=== PATIENT | female | born 1945 | race Caucasian/White ===

== ENCOUNTER 2022-02-28 14:11 | Observation (INO) ==
[2022-02-28] MEDS ORDERED: IOPAMIDOL 100 ML BOTTLE IV ONE (14:12)
--- NOTE | 2022-02-28 15:41 | Emergency Department Note ---
HPI General Chief complaint: Abdominal Pain Stated complaint: Hiatal hernia Time Seen by Provider: 02/28/22 14:25 Source: patient Mode of arrival: ambulatory Limitations: no limitations History of Present Illness HPI Narrative: Narrative: Patient is a 76-year-old female with a complex medical history who presents to the emergency department due to abdominal pain. Patient states that she has a longtime diagnosis of hiatal hernia, and she is concerned that her symptoms are due to this. She states that for the last 5 days she has had constant epigastric abdominal pain. She states that it is difficult to describe, but that she may describe it as a sharp pain with radiation to the back. She denies palliative or provocative factors. She denies any further radiation of the pain. She does endorse absence of bowel movements for the last 2 days, and states that if she has had gas it has been very little. She has a history of tubal ligation, but does not have any other history of surgical procedures of th e abdomen. She denies any other concerns at this time. Related Data Home Medications Medication Instructions Recorded Confirmed multivitamin (Daily Multi-Vitamin 1 tab PO QAM 03/16/20 02/28/22 tablet) vitamin B complex (B 1 tab PO QDAY 03/16/20 02/28/22 Complex-Vitamin B12 tablet) calcium carbonate 600 mg-vitamin 1 tab PO QDAY 05/10/20 02/28/22 D3 20 mcg (800 unit) tablet aspirin 81 mg tablet,delayed 81 mg PO QDAY 10/17/20 03/01/22 release flaxseed oil 1,000 mg capsule 1,000 mg PO BID 10/17/20 02/28/22 albuterol sulfate 90 mcg/actuation 1 puff inhalation QAM 11/22/21 03/01/22 aerosol inhaler (Ventolin HFA) ascorbic acid (vitamin C) 1,000 mg 1,000 mg PO QDAY 11/22/21 12/11/21 tablet bupropion HCl 150 mg 24 hr tablet, 150 mg PO QDAY 11/22/21 02/28/22 extended release cholecalciferol (vitamin D3) 125 125 mcg PO QDAY 11/22/21 02/28/22 mcg (5,000 unit) tablet (Vitamin D3) coenzyme Q10 100 mg capsule 100 mg PO QDAY 11/22/21 02/28/22 (CoQ-10) fluticasone furoate 200 1 inh inhalation QDAY 11/22/21 02/28/22 mcg-vilanterol 25 mcg/dose inhalation powder (Breo Ellipta) ipratropium 20 mcg-albuterol 100 1 puff inhalation Q6H 11/22/21 02/28/22 mcg/actuation mist for inhalation (Combivent Respimat) magnesium 500 mg tablet 15 mg PO QDAY 11/22/21 02/28/22 metoprolol succinate 25 mg 12.5 mg PO QAM 11/22/21 03/01/22 tablet,extended release 24 hr vitamin E 268 mg (400 unit) capsule 400 unit PO QDAY 11/22/21 02/28/22 metoprolol succinate 25 mg 25 mg PO HS 03/01/22 03/01/22 tablet,extended release 24 hr Previous Rx's Medication Instructions Recorded nitroglycerin 0.4 mg sublingual 0.4 mg sublingual Q5M PRN Chest 07/13/19 tablet Pain #30 tabs Mastectomy bra #1 ea 04/12/21 Prosthetic breast pads bilaterally #1 ea 04/12/21 rosuvastatin 20 mg tablet See Rx Instructions .Route 11/13/21 .COMPLEX #90 tabs pantoprazole 40 mg tablet,delayed 40 mg PO QAM #90 tabs 11/20/21 release Allergies Allergy/AdvReac Type Severity Reaction Status Date / Time ascorbic acid Allergy Mild Rash Verified 03/01/22 05:38 oxybutynin Allergy Mild Rash Verified 01/09/22 11:27 Penicillins Allergy Mild Rash Verified 02/28/22 20:12 solifenacin [From Vesicare] Allergy Mild Rash Verified 02/28/22 20:12 apixaban [From Eliquis] AdvReac Mild painful Verified 02/28/22 20:12 bladder Sulfa (Sulfonamide AdvReac Mild bladder Verified 02/28/22 20:12 Antibiotics) pain Review of Systems ROS ROS Narrative: Narrative: Constitutional: Denies fever or weakness Eyes: Denies eye pain or vision change ENT ED: Denies throat pain, hearing loss or rhinorrhea Cardiovascular: Denies chest pain, dyspnea on exertion, orthopnea or edema Respiratory: Denies shortness of breath or cough Gastrointestinal: Reports abdominal pain and constipation; Denies nausea, vomiting, diarrhea, hematochezia or melena Musculoskeletal: Denies back pain or myalgia Integumentary: Denies rash or lesions Neurological: Denies headache, weakness, numbness, confusion, abnormal gait or dizziness Endocrine: Denies fatigue or polyuria PFS Narrative Patient History Narrative: Narrative: Medical/Surgical/Family History All Active Problems (Updated 03/01/22 @ 22:36 by Josef Ramsey MD) Ventral hernia (Acute) Incarcerated ventral hernia (Acute) Fracture of metatarsal of right foot, closed (Acute) Nondisplaced fracture of lateral malleolus of right fibula (Acute) Encounter for screening for malignant neoplasm of colon (Acute) Former cigarette smoker (Acute) Spinal stenosis, lumbar region with neurogenic claudication (Acute) Leg cramps (Acute) Renal failure (Acute) Radiculopathy, lumbosacral region (Acute) History of breast cancer (Chronic) Low back pain (Chronic) Lumbar radiculopathy (Chronic) Pacemaker (Chronic) Left leg pain (Chronic) Visual symptom interfering with vision (Chronic) CAD (coronary artery disease) (Chronic) History of esophagogastroduodenoscopy (EGD) (Chronic 05/22/17) Bronchitis (Chronic) History of surgery (Chronic 06/11/17) History of bladder cancer (Chronic ~01/2017) History of pacemaker (Chronic 01/07/17) History of coronary angiogram (Chronic 10/19/16) History of surgery (Chronic ~07/2014) History of lymph node excision (Chronic) Cardiomyopathy (Chronic) History of colonoscopy (Chronic 05/22/17) Neuropathy (Chronic) Edema (Chronic) Breast cancer (Chronic ~2014) Diabetes (Chronic) Arthritis (Chronic) Heart palpitations (Chronic) SOB (shortness of breath) (Chronic) Heartburn (Chronic) Allergies (Chronic) Emphysema lung (Chronic) Actinic keratosis (Chronic) Anxiety (Chronic) Lymphedema (Chronic) GERD (gastroesophageal reflux disease) (Chronic) Hyperlipidemia (Chronic) COPD (chronic obstructive pulmonary disease) (Chronic) Lumbar back pain (Chronic) Vitamin D deficiency (Chronic) Other hypertrophic cardiomyopathy (Chronic) Non-ST elevation (NSTEMI) myocardial infarction (Chronic) Foot pain (Chronic) Sinus bradycardia, chronic (Chronic) CVA (cerebral vascular accident) (Chronic) Hematuria, unspecified (Chronic) Encounter for long-term (current) use of medications (Chronic) Urinary frequency (Chronic) Chronic rhinitis (Chronic) Hoarseness (Chronic) Peripheral neuropathy (Chronic) Osteopenia (Chronic) Pulmonary nodule (Chronic) Trigger finger (Chronic) Upper respiratory infection (Chronic) Breast cancer, right (Chronic) Medical History Actinic keratosis Allergies Anxiety Arthritis Breast cancer, right Cardiomyopathy congestive systolic, diastolic heart failure Chronic rhinitis COPD (chronic obstructive pulmonary disease) CVA (cerebral vascular accident) Diabetes Edema Emphysema lung Encounter for long-term (current) use of medications Foot pain GERD (gastroesophageal reflux disease) Heart palpitations Heartburn Hematuria, unspecified History of breast cancer Hoarseness Hyperlipidemia Low back pain Lumbar back pain Lumbar radiculopathy Lymphedema Neuropathy Non-ST elevation (NSTEMI) myocardial infarction Osteopenia Other hypertrophic cardiomyopathy Pacemaker Peripheral neuropathy Pulmonary nodule Sinus bradycardia, chronic SOB (shortness of breath) Spinal stenosis, lumbar region with neurogenic claudication Trigger finger Urinary frequency Vitamin D deficiency Surgical History Breast cancer (~2014) 05/28/13 Right breast CA - Triple neg CA 01/2015 Double Mastectomy History of bladder cancer (~01/2017) Dr Worthy History of colonoscopy (05/22/17) 2012 [facility] 05/22/17 Dr Herndon 11/29/2021-Dr. House History of coronary angiogram (10/19/16) History of esophagogastroduodenoscopy (EGD) (05/22/17) History of lymph node excision lymph node removal 08/2014 History of pacemaker (01/07/17) [place] History of surgery (~07/2014) Implanted [place] History of surgery (06/11/17) TURBT Dr Worthy Family History Mother Stomach cancer Arthritis Father , age 92 Heart disease Stroke Arthritis Grandmother Diabetes mellitus maternal Grandfather Emphysema lung maternal Brother Accident COD Prostate cancer Arthritis Asthma Family/Other Accident child due to accident Social History Alcohol Intake Frequency: holiday/special occasion only Substance Use: does not use Exam Narrative Narrative: Narrative: General Limitations: no limitations General appearance: Present alert and in no apparent distress; Absent anxious or appears intoxicated Head Head: Present atraumatic and normocephalic Eye Eye: Present PERRL and EOMI; Absent scleral icterus ENT ENT: Present mucous membranes moist; Absent nasal congestion Neck Neck: Present full ROM; Absent tenderness Chest Chest: Present normal inspection and symmetric chest wall rise; Absent [place] Respiratory Respiratory: Present normal lung sounds bilaterally; Absent respiratory distress or accessory muscle use Cardiovascular Cardiovascular: Present regular rate, normal rhythm and normal heart sounds Adbominal Abdominal: Present soft, tenderness (Superior to umbilicus) and normal bowel sounds; Absent distention Extremities Extremities: Present normal inspection and full ROM Back Back: Present normal inspection and full ROM Neurological Neurological: Present alert and oriented X3 Psychiatric Psychiatric: Present normal affect and normal mood Skin Skin: Present warm (WNL), dry and normal color Course Vital Signs Vital signs: Vital Signs Temperature 97.7 F 02/28/22 14:26 Pulse Rate 82 02/28/22 14:26 Respiratory Rate 18 02/28/22 14:26 Blood Pressure 116/81 02/28/22 14:26 Pulse Oximetry (%) 95 02/28/22 14:26 Oxygen Delivery Method 02/28/22 14:26 Temperature 97.5 F 03/01/22 19:35 Pulse Rate 66 03/01/22 19:35 Respiratory Rate 18 03/01/22 19:35 Blood Pressure 109/66 03/01/22 19:35 Pulse Oximetry (%) 90 03/01/22 19:35 Oxygen Delivery Method 03/01/22 19:35 Oxygen Flow Rate (L/min) 0 03/01/22 13:15 [facility] Narrative Medical decision making narrative: Narrative: Patient is a 76-year-old female who presents due to concern for abdominal pain. Patient has a mass just superior to the umbilicus with pain concerning for hernia. CT scan was performed and does demonstrate hernia with mesenteric fat and surrounding edema. Reduction was attempted, but I was unable to reduce the hernia. Due to inability to reduce, mesenteric fat in the hernia sac with surrounding edema, and patient pain I spoke to Dr. Herndon who agreed to see and evaluate patient for admission. Lab Data Result diagrams: 02/28/22 16:07 Labs: Lab Results 02/28/22 02/28/22 02/28/22 Range/Units 16:05 16:06 16:06 WBC (4.5-11.0) K/mcL RBC (3.59-5.38) M/mcL Hgb (11.2-15.7) g/dL Hct (34.1-44.9) % POC Hct 41.0 (36-48) MCV (80.0-100.0) fL MCH (26.0-34.0) pg MCHC (31.0-36.0) g/dL RDW (11.5-14.5) % Plt Count (140-440) K/mcL MPV (7.4-10.4) fL Immature Gran % (Auto) (0.0-0.5) % Neut % (Auto) (38.0-78.0) % Lymph % (Auto) (15.5-49.0) % Roosevelt % (Auto) (1.0-12.0) % Eos % (Auto) (0.0-7.0) % Baso % (Auto) (0.0-2.0) % Lymph # (Auto) (1.50-4.80) K/mcL Roosevelt # (Auto) (0.10-0.90) K/mcL Eos # (Auto) (0.00-0.70) K/mcL Baso # (Auto) (0.00-0.30) K/mcL Immature Gran # (0.00-0.05) K/mcl Absolute Neutrophils (1.80-8.00) K/mcL VBG Lactic Acid 1.1 (0.5-2.0) mmol/L POC Sodium 140 (133-145) POC Potassium 5.2 H (3.3-5.1) POC Chloride 107 (96-108) POC Total CO2 29.0 (22-30) POC BUN 29 H (6-20) POC Creatinine 0.9 (0.6-1.2) POC Glucose 89 (70-105) POC WB Ioniz Calcium 1.11 L (1.16-1.32) Total Bilirubin 0.4 (0.1-1.0) mg/dL Direct Bilirubin < 0.2 (0-0.3) mg/dL AST 45 H (<32) U/L ALT 14 (<40) U/L Alkaline Phosphatase 55 (39-117) U/L Total Protein 7.2 (5.9-8.4) gm/dL Albumin 3.6 (3.2-5.2) gm/dL Globulin 3.6 (2.2-3.7) gm/dL Lipase 35 (7-60) U/L 02/28/22 Range/Units 16:07 WBC 8.7 (4.5-11.0) K/mcL RBC 4.47 (3.59-5.38) M/mcL Hgb 13.7 (11.2-15.7) g/dL Hct 42.1 (34.1-44.9) % POC Hct (36-48) MCV 94.2 (80.0-100.0) fL MCH 30.6 (26.0-34.0) pg MCHC 32.5 (31.0-36.0) g/dL RDW 12.8 (11.5-14.5) % Plt Count 191 (140-440) K/mcL MPV 11.6 H (7.4-10.4) fL Immature Gran % (Auto) 0.2 (0.0-0.5) % Neut % (Auto) 51.9 (38.0-78.0) % Lymph % (Auto) 34.4 (15.5-49.0) % Roosevelt % (Auto) 11.1 (1.0-12.0) % Eos % (Auto) 1.8 (0.0-7.0) % Baso % (Auto) 0.6 (0.0-2.0) % Lymph # (Auto) 2.98 (1.50-4.80) K/mcL Roosevelt # (Auto) 0.96 H (0.10-0.90) K/mcL Eos # (Auto) 0.16 (0.00-0.70) K/mcL Baso # (Auto) 0.05 (0.00-0.30) K/mcL Immature Gran # 0.02 (0.00-0.05) K/mcl Absolute Neutrophils 4.50 (1.80-8.00) K/mcL VBG Lactic Acid (0.5-2.0) mmol/L POC Sodium (133-145) POC Potassium (3.3-5.1) POC Chloride (96-108) POC Total CO2 (22-30) POC BUN (6-20) POC Creatinine (0.6-1.2) POC Glucose (70-105) POC WB Ioniz Calcium (1.16-1.32) Total Bilirubin (0.1-1.0) mg/dL Direct Bilirubin (0-0.3) mg/dL AST (<32) U/L ALT (<40) U/L Alkaline Phosphatase (39-117) U/L Total Protein (5.9-8.4) gm/dL Albumin (3.2-5.2) gm/dL Globulin (2.2-3.7) gm/dL Lipase (7-60) U/L Discharge Plan Patient/Caregiver Discharge Instructions Pt seen by [facility]/PA only: No Clinical Impression: Ventral hernia Patient Disposition: Xfer As Inpt ([facility]) Discharge Date/Time: 02/28/22 20:05
[2022-02-28 16:09] LABS: POC Calcium, Ionized 1.11 (1.16-1.32); POC Creatinine 0.9 (0.6-1.2); POC Potassium 5.2 (3.3-5.1)
[2022-02-28 16:46] LABS: Basophils # (Auto) 0.05 K/mcL (0.00-0.30); Basophils % (Auto) 0.6 % (0.0-2.0); Eosinophils # (Auto) 0.16 K/mcL (0.00-0.70); Eosinophils % (Auto) 1.8 % (0.0-7.0); Hematocrit 42.1 % (34.1-44.9); Hemoglobin 13.7 g/dL (11.2-15.7); Lymphocytes # (Auto) 2.98 K/mcL (1.50-4.80); Lymphocytes % (Auto) 34.4 % (15.5-49.0); Mean Cell Volume 94.2 fL (80.0-100.0); Mean Corpuscular HGB Conc 32.5 g/dL (31.0-36.0); Mean Platelet Volume 11.6 fL (7.4-10.4); Monocytes # (Auto) 0.96 K/mcL (0.10-0.90); Monocytes % (Auto) 11.1 % (1.0-12.0); Neutrophils % (Auto) 51.9 % (38.0-78.0); Platelet Count 191 K/mcL (140-440); RBC 4.47 M/mcL (3.59-5.38); Red Cell Distribution Width 12.8 % (11.5-14.5); WBC 8.7 K/mcL (4.5-11.0)
--- NOTE | 2022-02-28 16:46 | Cat Scan Report ---
CLINICAL INFORMATION: Epigastric pain COMPARISON: Abdomen and pelvic CT 07/19/2013. TECHNIQUE: Following enteric contrast, 80 cc of Isovue-370 were injected intravenously, and 60 seconds later, 0.625 mm helical slices were obtained from the mid heart through the subtrochanteric regions. Following reconstruction, 2.5 mm sagittal, coronal and axial reformatted images were processed and reviewed at bone, lung and soft tissue windows. Five minutes later, 0.625 mm helical slices were obtained from the mid heart through the kidneys and viewed at soft tissue windows.The exam was performed using radiation dose optimization techniques including, but not limited to, automated exposure control, adjustment of the mA and/or kV according to patient size and use of iterative reconstruction technique. FINDINGS: The lung bases show mild chronic bronchitis with mild fibrosis in the periphery of both lower lobes. This also focal fibrosis in the anterior segment of the left lower lobe. No effusions. The heart is mildly enlarged with pacemaker leads in satisfactory position. Abdominal images show mild fatty change within the liver. A 3 mm cyst in the posterior segment of the right hepatic lobe is stable. Gallbladder and bile ducts are normal colon CBD is 5 mm. Both kidneys, adrenal glands, spleen, pancreas and aorta, including aortic branches, are normal in size, configuration and attenuation without focal lesion. There is no free air, free fluid or adenopathy Pelvic images show urinary bladder is grossly normal. Anteflexed normal appearing postmenopausal uterus spans 5 x 3 cm. Both ovarian regions are normal. There are varices in the left paraovarian region with enlargement of the draining left ovarian vein. Multiple sigmoid diverticuli noted, but no evidence of diverticulitis. The remaining large bowel, appendix region, small bowel and stomach are grossly normal. Since the prior exam, a 5.4 cm fat-containing hernias as developed in the epigastric region at midline. There is moderate edema within the hernia. This is likely the reason for patient's pain. Bone windows show no osseous abnormality. IMPRESSION: 1. 5 cm epigastric hernia at midline which contains inflamed mesenteric fat. This would likely be the cause for patient's pain 2. Sigmoid diverticulosis, but no evidence of diverticulitis. 3. Moderate left ovarian varices with enlargement in the draining left ovarian vein. This may result in chronic or recurrent mid pelvic pain Interpreted and Authenticated by: Lobo Duarte 02/28/22
[2022-02-28 17:08] LABS: ALT/SGPT 14 U/L (<40); AST/SGOT 45 U/L (<32); Albumin 3.6 gm/dL (3.2-5.2); Alkaline Phosphatase 55 U/L (39-117); Bilirubin,Direct < 0.2 mg/dL (0-0.3); Bilirubin,Total 0.4 mg/dL (0.1-1.0); Globulin 3.6 gm/dL (2.2-3.7)
--- NOTE | 2022-02-28 18:11 | General Surg History&Physical ---
HPI History of Present Illness Patient information: Note initiated : 02/28/22 at 6:05 pm Service Date, if different from initiated Date: [] Patient: Mandy Jaimes a 76 y/o F admitted on for Hiatal hernia. Chief Complaint: [] Chief complaint: Painful abdominal wall mass History of present illness: Ms. Jaimes is a 76 year old F admitted with incarcerated supraumbilical midline hernia. Patient has a 5-day history of enlargement of the supraumbilical midline mass. The mass became more prominent 2 days ago and she noted that it was more sore today. CT shows an incarcerated preperitoneal fat with inflammation. Patient was admitted and will have operative repair of the hernia in the morning. Review of Systems All systems: reviewed and no additional remarkable complaints except as stated PFSH PFSH All Active Problems (Updated 02/28/22 @ 18:10 by Jorje Herndon MD) Incarcerated ventral hernia (Acute) Fracture of metatarsal of right foot, closed (Acute) Nondisplaced fracture of lateral malleolus of right fibula (Acute) Encounter for screening for malignant neoplasm of colon (Acute) Former cigarette smoker (Acute) Spinal stenosis, lumbar region with neurogenic claudication (Acute) Leg cramps (Acute) Renal failure (Acute) Radiculopathy, lumbosacral region (Acute) History of breast cancer (Chronic) Low back pain (Chronic) Lumbar radiculopathy (Chronic) Pacemaker (Chronic) Left leg pain (Chronic) Visual symptom interfering with vision (Chronic) CAD (coronary artery disease) (Chronic) History of esophagogastroduodenoscopy (EGD) (Chronic 05/22/17) Bronchitis (Chronic) History of surgery (Chronic 06/11/17) History of bladder cancer (Chronic ~01/2017) History of pacemaker (Chronic 01/07/17) History of coronary angiogram (Chronic 10/19/16) History of surgery (Chronic ~07/2014) History of lymph node excision (Chronic) Cardiomyopathy (Chronic) History of colonoscopy (Chronic 05/22/17) Neuropathy (Chronic) Edema (Chronic) Breast cancer (Chronic ~2014) Diabetes (Chronic) Arthritis (Chronic) Heart palpitations (Chronic) SOB (shortness of breath) (Chronic) Heartburn (Chronic) Allergies (Chronic) Emphysema lung (Chronic) Actinic keratosis (Chronic) Anxiety (Chronic) Lymphedema (Chronic) GERD (gastroesophageal reflux disease) (Chronic) Hyperlipidemia (Chronic) COPD (chronic obstructive pulmonary disease) (Chronic) Lumbar back pain (Chronic) Vitamin D deficiency (Chronic) Other hypertrophic cardiomyopathy (Chronic) Non-ST elevation (NSTEMI) myocardial infarction (Chronic) Foot pain (Chronic) Sinus bradycardia, chronic (Chronic) CVA (cerebral vascular accident) (Chronic) Hematuria, unspecified (Chronic) Encounter for long-term (current) use of medications (Chronic) Urinary frequency (Chronic) Chronic rhinitis (Chronic) Hoarseness (Chronic) Peripheral neuropathy (Chronic) Osteopenia (Chronic) Pulmonary nodule (Chronic) Trigger finger (Chronic) Upper respiratory infection (Chronic) Breast cancer, right (Chronic) Medical History Actinic keratosis Allergies Anxiety Arthritis Breast cancer, right Cardiomyopathy congestive systolic, diastolic heart failure Chronic rhinitis COPD (chronic obstructive pulmonary disease) CVA (cerebral vascular accident) Diabetes Edema Emphysema lung Encounter for long-term (current) use of medications Foot pain GERD (gastroesophageal reflux disease) Heart palpitations Heartburn Hematuria, unspecified History of breast cancer Hoarseness Hyperlipidemia Low back pain Lumbar back pain Lumbar radiculopathy Lymphedema Neuropathy Non-ST elevation (NSTEMI) myocardial infarction Osteopenia Other hypertrophic cardiomyopathy Pacemaker Peripheral neuropathy Pulmonary nodule Sinus bradycardia, chronic SOB (shortness of breath) Spinal stenosis, lumbar region with neurogenic claudication Trigger finger Urinary frequency Vitamin D deficiency Surgical History Breast cancer (~2014) 05/28/13 Right breast CA - Triple neg CA 01/2015 Double Mastectomy History of bladder cancer (~01/2017) Dr Worthy History of colonoscopy (05/22/17) 2012 [facility] 05/22/17 Dr Herndon 11/29/2021-Dr. House History of coronary angiogram (10/19/16) History of esophagogastroduodenoscopy (EGD) (05/22/17) History of lymph node excision lymph node removal 08/2014 History of pacemaker (01/07/17) [place] History of surgery (~07/2014) Implanted [place] History of surgery (06/11/17) TURBT Dr Worthy Family History Mother Stomach cancer Arthritis Father , age 92 Heart disease Stroke Arthritis Grandmother Diabetes mellitus maternal Grandfather Emphysema lung maternal Brother Accident COD Prostate cancer Arthritis Asthma Family/Other Accident child due to accident Social History household members: alone marital status: education level: college occupational status: retired alcohol intake frequency: holiday/special occasion only substance use type: does not use additional history: Has 1 living child, 3 grandchildren, 2 brothers A/W MEDS/ALLERGIES Home Medications and Allergies Home Medications Medication Instructions Recorded Confirmed Type nitroglycerin 0.4 mg sublingual 0.4 mg sublingual Q5M PRN Chest 07/13/1911/15 Rx tablet Pain #30 tabs multivitamin (Daily Multi-Vitamin 1 tab PO QAM 03/16/20 12/11/21 History tablet) vitamin B complex (B 1 tab PO QDAY 03/16/20 12/11/21 History Complex-Vitamin B12 tablet) calcium carbonate 600 mg-vitamin 1 tab PO QDAY 05/10/20 12/11/21 History D3 20 mcg (800 unit) tablet aspirin 81 mg tablet,delayed 81 mg PO QDAY 10/17/20 12/11/21 History release flaxseed oil 1,000 mg capsule 1,000 mg PO BID 10/17/20 12/11/21 History Mastectomy bra #1 ea 04/12/21 12/11/21 Rx Prosthetic breast pads bilaterally #1 ea 04/12/21 12/11/21 Rx rosuvastatin 20 mg tablet See Rx Instructions .Route 11/13/21 12/11/21 Rx .COMPLEX #90 tabs pantoprazole 40 mg tablet,delayed 40 mg PO QAM #90 tabs 11/20/21 12/11/21 Rx release albuterol sulfate 90 mcg/actuation 2 puff inhalation QID PRN 11/22/21 12/11/21 History aerosol inhaler (Ventolin HFA) Shortness Of Breath ascorbic acid (vitamin C) 1,000 mg 1,000 mg PO QDAY 11/22/21 12/11/21 History tablet bupropion HCl 150 mg 24 hr tablet, 150 mg PO QDAY 11/22/21 12/11/21 History extended release cholecalciferol (vitamin D3) 125 125 mcg PO QDAY 11/22/21 12/11/21 History mcg (5,000 unit) tablet (Vitamin D3) coenzyme Q10 100 mg capsule 100 mg PO QDAY 11/22/21 12/11/21 History (CoQ-10) fluticasone furoate 200 1 inh inhalation QDAY 11/22/21 12/11/21 History mcg-vilanterol 25 mcg/dose inhalation powder (Breo Ellipta) ipratropium 20 mcg-albuterol 100 1 puff inhalation Q6H 11/22/21 12/11/21 History mcg/actuation mist for inhalation (Combivent Respimat) magnesium 500 mg tablet 15 mg PO QDAY 11/22/21 12/11/21 History metoprolol succinate 25 mg 12.5 - 25 mg PO BID 11/22/21 12/11/21 History tablet,extended release 24 hr vitamin E 268 mg (400 unit) capsule 400 unit PO QDAY 11/22/21 12/11/21 History Allergies Allergy/AdvReac Type Severity Reaction Status Date / Time mold Allergy Mild sinus Verified 01/09/22 11:27 infection oxybutynin Allergy Mild Rash Verified 01/09/22 11:27 apixaban [From Eliquis] AdvReac Intermediate Other Verified 01/09/22 11:27 Penicillins AdvReac Intermediate Rash Verified 01/09/22 11:27 Sulfa (Sulfonamide AdvReac Intermediate Other Verified 01/09/22 11:27 Antibiotics) solifenacin [From Vesicare] AdvReac Mild Rash Verified 01/09/22 11:27 acidic fruit Allergy Intermediate Rash Uncoded 12/11/21 14:03 Physical Examination Vital Signs Vital signs: Temp Pulse Resp BP Pulse Ox O2 Del Method 97.7 F 63 18 131/79 92 02/28/22 14:26 02/28/22 17:31 02/28/22 14:26 02/28/22 17:31 02/28/22 17:31 02/28/22 14:26 General physical appearance General physical exam: well developed, well nourished, no distress and moderate pain (Supraumbilical midline mass) Eyes Eye exam: PERRL and normal ocular movement ENT ENT exam: normal mucosa, no hearing loss and no congestion Head Head exam IM: Present atraumatic, normal inspection and normocephalic Neck Neck exam: no masses, no bruits, trachea midline, no lymphadenopathy and no venous distension Cardiovascular Cardiovascular exam IM: Present normal rate and rhythm, RRR, +S1 and +S2; Absent JVD or tachycardia Respiratory Respiratory exam: normal expansion, normal respiratory effort and clear to auscultation Abdomen Abdomen: Present soft, tender (Tender, erythematous supraumbilical midline mass) and masses (Supraumbilical midline) Integumentary Integumentary: Present no rash, no growths and no abnormal pigmentation Neurologic Neurologic: Present normal coordination and normal sensation Musculoskeletal Musculoskeletal: Present normal gait and normal posture Psychiatric Psychiatric: Present oriented to time, oriented to person, oriented to place, speech is normal and memory intact Results Labs Result diagrams: 02/28/22 16:07 Labs: Abnormal lab results 02/28/22 02/28/22 02/28/22 Range/Units 16:05 16:06 16:07 MPV 11.6 H (7.4-10.4) fL [place] # (Auto) 0.96 H (0.10-0.90) K/mcL POC Potassium 5.2 H (3.3-5.1) POC BUN 29 H (6-20) POC WB Ioniz Calcium 1.11 L (1.16-1.32) AST 45 H (<32) U/L Diabetes panel 02/28/22 Range/Units 16:06 AST 45 H (<32) U/L ALT 14 (<40) U/L Alkaline Phosphatase 55 (39-117) U/L Total Protein 7.2 (5.9-8.4) gm/dL Albumin 3.6 (3.2-5.2) gm/dL Calcium panel 02/28/22 Range/Units 16:06 Albumin 3.6 (3.2-5.2) gm/dL Adrenal panel 02/28/22 Range/Units 16:06 Total Bilirubin 0.4 (0.1-1.0) mg/dL AST 45 H (<32) U/L ALT 14 (<40) U/L Alkaline Phosphatase 55 (39-117) U/L Total Protein 7.2 (5.9-8.4) gm/dL Albumin 3.6 (3.2-5.2) gm/dL All other labs normal. A/P Assessment and plan (1) Incarcerated ventral hernia: Status: Acute (2) Cardiomyopathy: Status: Chronic Comment: congestive systolic, diastolic heart failure (3) Breast cancer: Status: Chronic Comment: 05/28/13 Right breast CA - Triple neg CA 01/2015 Double Mastectomy (4) GERD (gastroesophageal reflux disease): Status: Chronic (5) COPD (chronic obstructive pulmonary disease): Status: Chronic (6) Sinus bradycardia, chronic: Status: Chronic Plan Patient is admitted for urgent surgery tomorrow N.p.o. after midnight Cefepime 2 g IV every 8 hours Consent for ventral hernia repair Sepsis Sepsis Identified: No Time Spent With Patient Time: Total time spent is greater than 50% in coordination of care (as documented) at patient's floor/unit and/or counseling patient:
[2022-02-28] MEDS ORDERED: ONDANSETRON 4 MG/2 ML VIAL IV PRN (18:12)
[2022-02-28] MEDS ORDERED: HYDROmorphone 1 MG/ML SYRINGE IV PRN (18:12)
[2022-02-28] MEDS ORDERED: oxyCODONE HCL 5 MG TABLET PO PRN (18:12)
--- NOTE | 2022-02-28 18:39 | XRay Report ---
CLINICAL INFORMATION: Preop COMPARISON: 01/08/2017. TECHNIQUE: Portable FINDINGS: Mild cardiomegaly is unchanged. Pacemaker leads in stable satisfactory position. Mediastinum and pulmonary vessels are normal. Minor atelectasis seen left base. Lungs are otherwise clear. No effusions. IMPRESSION: No acute disease-stable Interpreted and Authenticated by: Lobo Duarte 02/28/22
[2022-02-28] MEDS ORDERED: METOPROLOL SUCCINATE 50 MG TAB.XL.24H PO ONE (22:49)
[2022-02-28] MEDS: DOCUSATE SODIUM 100 MG CAPSULE PO SCH (22:54)
[2022-02-28] MEDS: SENNOSIDES 1 TABLET PO SCH (22:54)
[2022-02-28] MEDS: 0.9 % SODIUM CHLORIDE 10 ML SYRINGE IV SCH (22:57)
[2022-02-28] MEDS: 0.9 % SODIUM CHLORIDE 1,000 ML IV SCH (22:58)
[2022-02-28] MEDS ORDERED: cefTRIAXone 2 GM VIAL ONE (23:25)
[2022-02-28] MEDS: cefTRIAXone 2 GM in DEXTROSE 5% IN WATER 50 ML IV SCH (23:30)
[2022-03-01] MEDS: METOPROLOL SUCCINATE 25 MG TAB.XL.24H PO SCH ×2 (00:41→20:16)
[2022-03-01] MEDS: 0.9 % SODIUM CHLORIDE 1,000 ML IV SCH ×3 (04:56→14:41)
[2022-03-01] MEDS: 0.9 % SODIUM CHLORIDE 10 ML SYRINGE IV SCH ×3 (04:56→20:16)
[2022-03-01] MEDS: DOCUSATE SODIUM 100 MG CAPSULE PO SCH ×2 (08:22→20:15)
[2022-03-01] MEDS: cefTRIAXone 2 GM in DEXTROSE 5% IN WATER 50 ML IV SCH (09:11)
--- NOTE | 2022-03-01 10:09 | EKG ---
TS Minor Care Test Date: 2022-02-28 Pat Name: Mandy Jaimes Department: ED Room: Gender: Female [employer]inder: : 1945 Requested By: Jorje Herndon Order Number: [id number] Reading MD: Rajesh Schmidt Measurements Intervals [place] Rate: 65 P: 35 MN: 191 QRS: -24 QRSD: 147 T: 44 QT: 488 QTc: 508 Interpretive Statements Sinus rhythm Left bundle branch block Electronically Signed On 03-01-2022 10:08:53 PDT by Rajesh Schmidt [place] [place]/[id number].pdf
[2022-03-01] MEDS ORDERED: KETAMINE 50 MG/ML Syringe (ANEST) IV ONE (11:20)
[2022-03-01] MEDS ORDERED: GLYCOPYRROLATE 0.2 MG/ML VIAL IV ONE (11:20)
[2022-03-01] MEDS ORDERED: ROCURONIUM 10 MG/ML ML IV ONE (11:20)
[2022-03-01] MEDS ORDERED: HYDROmorphone 1 MG/ML SYRINGE ONE (11:20)
[2022-03-01] MEDS ORDERED: SUGAMMADEX SODIUM 200 MG/2 ML VIAL IV ONE (11:20)
[2022-03-01] MEDS ORDERED: MAGNESIUM SULFATE 2 GM/50 ML BAG IV ONE (11:20)
[2022-03-01] MEDS ORDERED: PROPOFOL 200 MG/20 ML VIAL IV ONE (11:20)
[2022-03-01] MEDS ORDERED: fentaNYL 100 MCG/2 ML VIAL IV ONE (11:20)
[2022-03-01] MEDS ORDERED: PHENYLephrine 1 MG/10 ML SYRINGE (ANEST) ONE (11:20)
[2022-03-01] MEDS ORDERED: ONDANSETRON 4 MG/2 ML VIAL ONE (11:20)
[2022-03-01] MEDS ORDERED: DEXAMETHASONE 10 MG/ML VIAL ONE (11:20)
[2022-03-01] MEDS ORDERED: LIDOCAINE HCL/PF 100 MG/5 ML SYRINGE IV ONE (11:20)
--- NOTE | 2022-03-01 12:10 | Brief Operative Note ---
Brief Operative Note Date of procedure: 03/01/22 Pre-op diagnosis: incarcerated ventral hernia Post-op diagnosis: other (incarcerated ventral hernia) Procedure: ventral hernia repair Grafts/Implants: No Anesthesia: GETA Findings: tightly incarcerated preperitonel fat in midline ventral hernia Complications: none Surgeon: Jorje Herndon Estimated blood loss (cc): 10 Specimens Removed/Pathology: none sent Condition: stable Disposition: PACU
[2022-03-01] MEDS ORDERED: ACETAMINOPHEN 1,000 MG/100 ML BAG IV ONE (12:56)
[2022-03-01] MEDS ORDERED: METHOCARBAMOL 1,000 MG/10 ML VIAL IV PRN (12:56)
[2022-03-01] MEDS ORDERED: IPRATROPIUM/ALBUTEROL 3 ML AMPUL.NEB NEB PRN (12:56)
[2022-03-01] MEDS ORDERED: NALOXONE HCL 0.4 MG/ML VIAL IV PRN (12:56)
[2022-03-01] MEDS ORDERED: LACTATED RINGERS 250 ML IV PRN (12:56)
[2022-03-01] MEDS ORDERED: ONDANSETRON 4 MG/2 ML VIAL IV PRN (12:56)
[2022-03-01] MEDS ORDERED: HYDROmorphone 0.5 MG/0.5 ML SYRINGE IV PRN (12:56)
[2022-03-01] MEDS ORDERED: LACTATED RINGERS 1,000 ML IV SCH (13:00)
[2022-03-01] MEDS: fentaNYL 100 MCG/2 ML VIAL IV PRN ×2 (13:08→13:13)
[2022-03-01] MEDS: SENNOSIDES 1 TABLET PO SCH (20:15)
[2022-03-01] MEDS ORDERED: METOPROLOL SUCCINATE 25 MG TAB.XL.24H PO SCH ×2 (21:00)
[2022-03-01] MEDS ORDERED: BUTALB/ACETAMINOPHEN/CAFFEINE 1 TABLET PO PRN (21:54)
[2022-03-02] MEDS: 0.9 % SODIUM CHLORIDE 1,000 ML IV SCH ×2 (00:55→08:18)
[2022-03-02] MEDS: 0.9 % SODIUM CHLORIDE 10 ML SYRINGE IV SCH ×2 (05:59→12:46)
[2022-03-02] MEDS: DOCUSATE SODIUM 100 MG CAPSULE PO SCH (08:07)
[2022-03-02] MEDS: cefTRIAXone 2 GM in DEXTROSE 5% IN WATER 50 ML IV SCH (08:11)
[2022-03-02] MEDS ORDERED: buPROPion 150 MG TAB.XL.24H PO SCH (09:00)
[2022-03-02] MEDS ORDERED: ALBUTEROL SULFATE 200 PUFF INHALER INH PRN (09:00)
[2022-03-02] MEDS ORDERED: METOPROLOL SUCCINATE 25 MG TAB.XL.24H PO SCH (09:00)
[2022-03-02] MEDS ORDERED: PANTOPRAZOLE 40 MG TABLET PO SCH (09:00)
--- NOTE | 2022-03-02 12:38 | Discharge Summary ---
Discharge Provider Provider IMPORTANT FOLLOW-UP INFORMATION FOR PCP: Patient information: Note initiated : 03/02/22 at 12:38 pm Service Date, if different from initiated Date: [] Patient: Mandy Jaimes 76 y/o F admitted on 02/28/22 for Hiatal hernia. Chief Complaint: [] Date of admission: 02/28/22 20:02 Discharge date: 03/02/22 Primary care physician: Jagruti Herndon Admitting clinician: Jorje Herndon Attending physician on admission: Jorje Herndon Consults: 02/28/22 Consult to Physician [CONS] Stat Comment: Consulting Provider: Jorje Herndon Reason For Exam: Physician to Consult Attending physician on discharge: Jorje Herndon Discharging clinician: Jorje Herndon COURSE Hospital Course Hospital course: 76-year-old female admitted on 28 February with incarcerated ventral hernia. She had exploration with ventral hernia repair on 01 March. She was found to have edematous fat through a small midline fascial defect. The fat was reduced back into the preperitoneal space and the defect was closed with multiple [id number] sutures of #1 Prolene. The patient was monitored overnight and her pain is now well controlled. She is stable for discharge home. Discharge diagnosis: Incarcerated ventral hernia Secondary discharge diagnosis: Chronic obstructive lung disease Gastroesophageal reflux disease Reason for admission: Incarcerated ventral hernia Procedures: Ventral hernia repair Pertinent studies/significant findings: CT of abdomen and pelvis Complications: None Time Spent with Patient Time attestation: Total time spent providing and/or coordinating discharge services: Time spent: Less than 30 minutes Physical Examination Vital Signs Vital signs: Temp Pulse Resp BP Pulse Ox O2 Del Method O2 Flow Rate 97.8 F 92 H 16 149/65 90 0 03/02/22 07:46 03/02/22 07:46 03/02/22 07:46 03/02/22 07:46 03/02/22 07:46 03/02/22 07:46 03/01/22 13:15 General physical appearance General physical exam: well developed, well nourished, no distress and moderate pain Eyes Eye exam: PERRL and normal ocular movement ENT ENT exam: decreased hearing Head Head exam IM: Present atraumatic, normal inspection and normocephalic Neck Neck exam: no masses, no bruits, trachea midline, no lymphadenopathy and no venous distension Cardiovascular Cardiovascular exam IM: Present normal rate and rhythm, RRR, +S1 and +S2; Absent JVD or tachycardia Respiratory Respiratory exam: normal expansion, normal respiratory effort and clear to auscultation Abdomen Abdomen: Present tender (Mild incisional tenderness in suprapubic midline); Absent distended Integumentary Integumentary: Present no rash, no growths and no abnormal pigmentation Neurologic Neurologic: Present normal coordination and normal sensation Musculoskeletal Musculoskeletal: Present normal gait and normal posture Psychiatric Psychiatric: Present oriented to time, oriented to person, oriented to place, speech is normal and memory intact Discharge Plan Patient/Caregiver Discharge Instructions Activity: increase activity as tolerated Diet: Consistent Carbohydrate Instructions: Laparoscopic Herniorrhaphy (DC) Activity Restrictions/Additional Instructions: Resume home diet as tolerated. Take all meals up in chair, sitting at 90 degrees, to prevent aspiration. Increase activity as tolerated. Continue fall precautions. Follow-up with Dr. Herndon in 2 weeks for suture removal. Please contact the office on Friday to make the appointment. Return to ER for fever, chills, uncontrolled pain, inability to urinate or have a bowel movement, nausea and/or vomiting, swelling, redness, signs of infection, shortness of breath, chest pain, return of symptoms, or other acute symptom. This discharge packet is provided to you to help keep you informed about your care. We want to ensure you get everything you need when you go home. You will also be receiving a call from us in a few days to follow up with you and see how you are doing since your discharge. This gives us a chance to listen to any concerns you maybe experiencing since you were discharged or any additional needs you may have, as well as providing us feedback on your care experience. We strive to always provide excellent care and thank you for your feedback and for choosing [facility]. Prescriptions: No Action multivitamin [Daily Multi-Vitamin] Tablet 1 tab PO QAM vitamin B complex [B Complex-Vitamin B12] Tablet 1 tab PO QDAY nitroglycerin 0.4 mg tablet, sublingual 0.4 mg SUBLINGUAL Q5M PRN (Reason: Chest Pain) Qty: 30 0RF (DME) Prosthetic breast pads bilaterally See Rx Instructions .Route .MEDSUPPLY Qty: 1 0RF Rx Instructions: As directed (DME) Mastectomy bra See Rx Instructions .Route .MEDSUPPLY Qty: 1 2RF Rx Instructions: As directed pantoprazole 40 mg tablet,delayed release (DR/EC) 40 mg PO QAM Qty: 90 3RF calcium carbonate-vitamin D3 600 mg(1,500mg) -800 unit tablet 1 tab PO QDAY flaxseed oil 1,000 mg capsule 1,000 mg PO BID Rx Instructions: administer with meals aspirin 81 mg tablet,delayed release (DR/EC) 81 mg PO QDAY rosuvastatin 20 mg tablet See Rx Instructions .ROUTE .COMPLEX Qty: 90 1RF Dose Instruction: TAKE 1 TABLET BY MOUTH EVERY DAY Rx Instructions: One half tablet 4 times per week magnesium 500 mg Tablet 15 mg PO QDAY albuterol sulfate [Ventolin HFA] 90 mcg/actuation Hfa Aerosol Inhaler 1 puff INHALATION QAM Combivent Respimat 20-100 mcg/actuation Mist 1 puff INHALATION Q6H ascorbic acid (vitamin C) 1,000 mg Tablet 1,000 mg PO QDAY Rx Instructions: 1000 mg metoprolol succinate 25 mg tablet extended release 24 hr 12.5 mg PO QAM Rx Instructions: 1/2 po q am, 1 po q pm vitamin E 400 unit Capsule 400 unit PO QDAY Rx Instructions: 400iu coenzyme Q10 [CoQ-10] 100 mg Capsule 100 mg PO QDAY Rx Instructions: 100 mg bupropion HCl 150 mg tablet extended release 24 hr 150 mg PO QDAY Rx Instructions: TAKE 1 TABLET BY MOUTH EVERY MORNING cholecalciferol (vitamin D3) [Vitamin D3] 125 mcg (5,000 unit) Tablet 125 mcg PO QDAY Rx Instructions: 125 ACG fluticasone furoate-vilanterol [Breo Ellipta] 200-25 mcg/dose blister with device 1 inh inhalation QDAY Rx Instructions: INHALE 1 PUFF BY MOUTH EVERY DAY metoprolol succinate 25 mg tablet extended release 24 hr 25 mg PO HS Prescription drug monitoring program results: PDMP not reviewed Follow Up Plan Follow up with: Jorje Herndon MD [Physician] - (Follow-up for suture removal in 2 weeks Follow-up to be reviewed by me in 4 weeks) Jagruti Herndon ARNP [Primary Care Provider] - Patient Disposition: Home, Self-Care Prognosis: Good Rehab Potential: Good I certify that the patient requires SNF services: No Overall status at discharge: patient is progressing back to baseline Discharge Orders: Discharge Order (Routine); Ordered 03/02/22 Ordered By: Jorje Herndon Pending Pending Pending: Resuscitation Status Resuscitate (Full Code) Diet Full Liquid Diet Start FriMar 01 1337 Acetaminophen/Butalbital/Caffeine (Butalb/Acetaminophen/Caffeine 1 Tablet) 2 tab PO Q4HP PRN PRN Reason: Headache Last Admin: 03/01/22 22:08 Dose: 2 tab Documented By: CORRINA Bupropion HCl (Bupropion 150 Mg Tab.Xl.24h) 150 mg PO QDAY [facility] Last Admin: 03/02/22 08:07 Dose: 150 mg Documented By: ANNE Docusate Sodium (Docusate Sodium 100 Mg Capsule) 100 mg PO BID [facility] Last Admin: 03/02/22 08:07 Dose: 100 mg Documented By: Admin: 03/01/22 20:15 Dose: 100 mg Documented By: Admin: 03/01/22 08:22 Dose: 100 mg Documented By: Admin: 02/28/22 22:54 Dose: 100 mg Documented By: CORRINA Sodium Chloride (Sodium Chloride 0.9%) 1,000 mls @ 100 mls/hr IV .Q10H [facility] Last Admin: 03/02/22 08:18 Dose: Not Given Documented By: Infusion: 03/02/22 06:45 Dose: 0 mls/hr Documented By: Admin: 03/02/22 00:55 Dose: Not Given Documented By: Admin: 03/01/22 14:41 Dose: 100 mls/hr Documented By: Infusion: 03/01/22 14:41 Dose: 100 mls/hr Documented By: Admin: 03/01/22 08:34 Dose: 100 mls/hr Documented By: Infusion: 03/01/22 08:34 Dose: 100 mls/hr Documented By: Admin: 03/01/22 04:56 Dose: Not Given Documented By: Admin: 02/28/22 22:58 Dose: 100 mls/hr Documented By: CORRINA Ceftriaxone Sodium 2 gm/ (Dextrose) 50 mls @ 100 mls/hr IV Q24H [facility] Last Infusion: 03/02/22 08:43 Dose: 0 mls/hr Documented By: Admin: 03/02/22 08:11 Dose: 100 mls/hr Documented By: Infusion: 03/01/22 09:41 Dose: 0 mls/hr Documented By: Admin: 03/01/22 09:11 Dose: 100 mls/hr Documented By: Infusion: 03/01/22 00:42 Dose: 0 mls/hr Documented By: Admin: 02/28/22 23:30 Dose: 100 mls/hr Documented By: CORRINA Metoprolol Succinate (Metoprolol Succinate 25 Mg Tab.Xl.24h) 25 mg PO [facility] Last Admin: 03/01/22 20:16 Dose: 25 mg Documented By: Admin: 03/01/22 00:41 Dose: Not Given Documented By: CORRINA Metoprolol Succinate (Metoprolol Succinate 25 Mg Tab.Xl.24h) 12.5 mg PO [facility] Last Admin: 03/02/22 08:08 Dose: 12.5 mg Documented By: ANNE Metoprolol Succinate (Metoprolol Succinate 25 Mg Tab.Xl.24h) 25 mg PO [facility] Last Admin: 03/01/22 20:16 Dose: Not Given Documented By: CORRINA Pantoprazole Sodium (Pantoprazole 40 Mg Tablet) [facility] [place] Admin: 03/02/22 08:07 Dose: 40 mg Documented By: ANNE Senna (Sennosides 1 Tablet) 2 tab PO [facility] Last Admin: 03/01/22 20:15 Dose: 2 tab Documented By: Admin: 02/28/22 22:54 Dose: 2 tab Documented By: CORRINA Sodium Chloride (0.9 % Sodium Chloride 10 Ml Syringe) 10 ml IV Q8 [facility] Last Admin: 03/02/22 05:59 Dose: Not Given Documented By: Admin: 03/01/22 20:16 Dose: 10 ml Documented By: Admin: 03/01/22 14:47 Dose: Not Given Documented By: Admin: 03/01/22 04:56 Dose: Not Given Documented By: Admin: 02/28/22 22:57 Dose: 10 ml Documented By: CORRINA Shift Summary 03/02/22 03:11 Shift Summary by Ellie Maher Primary Diagnosis: Incarcerated Supraumbilical Midline Hernia Registration Status: OBS Date of Surgery (if applicable): 03/01/22, Ventral Hernia Repair Pertinent Medical Dx/Issue(s): CAD, Pacemaker, Renal failure, Fracture of metatarsal of right foot closed Med management (antibiotics, diuretics, BP): Rocephin, IV fluid Skin/Wound Care: Right foot 3rd digit fx to which pt has a boot for, Midline surgical incision with cheyanne and tegaderm, Ice pack. Vital Signs with Trends: VSS O2, liter flow/saturations: RA Pain management (acute vs. chronic): Fioricet X2 for headache Lab/Rad (abnormals, trends): K= 5.2, BUN 29, AST 45 Neuro/Mental Status: A&OX4 Cardiac Rhythm, Alarm Settings: Pt has a pacemaker, LUCW Urinary Elimination Device: Bathroom Urinary output greater than 30mL/hr? yes Date of last BM: 02/27/22 Lines/Tubes: 22G L hand NS at 100ml/hr Activity: SBA Discharge Plan (needs, disposition, etc): 03/02/22 , D/C home Initialized on 03/02/22 03:11 - END OF NOTE
[2022-03-02] MEDS ORDERED: MAGNESIUM HYDROXIDE 30 ML ORAL.SUSP PO PRN (12:52)
--- NOTE | 2022-03-26 08:10 | Operative Note ---
DATE OF OPERATION: 03/01/2022 PREOPERATIVE DIAGNOSIS: Incarcerated ventral hernia. POSTOPERATIVE DIAGNOSIS: Incarcerated ventral hernia. PROCEDURE: Ventral hernia repair. SURGEON: Jorje Herndon M.D. FINDINGS: Tightly incarcerated preperitoneal fat in the midline ventral hernia defect. DESCRIPTION OF PROCEDURE: Under general anesthesia, the patient's abdomen was prepped and draped in a sterile field. A supraumbilical midline incision was made over the hernia defect. In the subcutaneous tissue, a tightly incarcerated piece of preperitoneal fat was encountered. It was slightly thickened. The defect was opened to allow the incarcerated fat to be pushed back into the preperitoneal space. The defect was not large enough for mesh repair. It was, therefore, closed primarily using interrupted [id number] #1 Prolene with the knots inverted. This seemed to effect a good repair. Irrigation was carried out. Subcutaneous fat was closed with a 2-0 Monocryl. Skin was closed with cheyanne. The patient tolerated the procedure well. She was awakened and transferred to the postanesthetic care unit in satisfactory condition. LCS:carloz Job ID: [id number] Doc ID: [id number] Jorje Herndon M.D.
== END 2022-03-02 14:34 | disposition home or self-care (01) ==
LOC: MEDSUR 14:11 → ED 14:11 → MEDSUR 20:05
PROVIDERS: ADMIT Family Medicine Adult Medicine; ATTEND Family Medicine Adult Medicine